=== PATIENT | female | born 1970 | race African-American/Black ===

== ENCOUNTER 2018-10-20 16:34 | Emergency (ER) | payer MEDICAID ==
[~2018-10-20] VITALS: Ht 165.1 cm; Wt 81.0 kg
[2018-10-20 17:43] LABS: CLARITY URINE CLEAR (CLEAR); COLOR URINE YELLOW (YELLOW); KETONES URINE TRACE (NEGATIVE); LEUKOCYTE ESTERASE URINE 1+ (NEGATIVE); NITRITE URINE NEGATIVE (NEGATIVE); OCCULT BLOOD URINE 3+ (NEGATIVE); PROTEIN URINE 2+ (NEGATIVE); SPECIFIC GRAVITY URINE 1.025 (1.005-1.030)
[2018-10-20 17:46] LABS: BASOPHILS % 1.2 % (0.0-2.0); EOSINOPHILS % 3.1 % (0.0-5.0); HEMATOCRIT. 36.8 % (36.0-48.0); HEMOGLOBIN. 12.1 g/dL (12.0-16.0); LYMPHOCYTES % 17.6 % (20.0-50.0); MEAN CORPUSCULAR HEMOGLOBIN 28.6 pg (28.0-32.0); MEAN CORPUSCULAR VOLUME 87.2 fL (81.0-99.0); MEAN PLATELET VOLUME 9.1 fl (7.4-10.4); MONOCYTES % 5.1 % (2.0-8.0); PLATELET 291 x1000/uL (130-400); RED BLOOD CELL COUNT 4.22 mill/uL (4.2-5.4); RED CELL DISTRIBUTION WIDTH 14.8 % (11.6-14.6)
[2018-10-20 17:47] LABS: *AMPHETAMINES SCREEN URINE NEGATIVE (NEGATIVE); *BARBITURATES SCREEN URINE NEGATIVE (NEGATIVE); *BENZODIAZEPINES SCREEN URINE NEGATIVE (NEGATIVE); *COCAINE SCREEN URINE NEGATIVE (NEGATIVE)
[2018-10-20 17:48] LABS: CANNABINOID URINE SCREEN NEGATIVE (NEGATIVE); METHADONE URINE SCREEN NEGATIVE (NEGATIVE); OPIATES URINE SCREEN NEGATIVE (NEGATIVE); PHENCYCLIDINE URINE SCREEN NEGATIVE (NEGATIVE)
[2018-10-20 17:48] LABS: CHLORIDE 110 mEq/L (98-107)
[2018-10-20 17:52] LABS: ETHANOL BLOOD < 10 mg/dL
[2018-10-21 16:31] LABS: HCG SCREEN NEGATIVE
[2018-10-22] MEDS ORDERED: ACETAMINOPHEN 325MG TABLET PO ONE (09:00)
[2018-10-24] MEDS ORDERED: LORAZEPAM 1MG TABLET PO ONE (10:00)
[2018-10-24] MEDS ORDERED: ARIPIPRAZOLE 10MG TABLET PO ONE (10:00)
[2018-10-24 19:54] VITALS: BP 143/74
== END 2018-10-24 19:54 ==
LOC: ER 16:34
DX: R45.851 Suicidal ideations (principal); Z59.0 Homelessness; F31.9 Bipolar disorder, unspecified; F20.9 Schizophrenia, unspecified
CPT/HCPCS: 36415; 80305; 80307; 80320; 80329; 81003; 93005; 99284; G0480

== ENCOUNTER 2022-09-01 10:32 | Emergency (ER) | payer MEDICAID, OTHER ==
[~2022-09-01] VITALS: Ht 170.2 cm; Wt 127.3 kg
[~2022-09-01 10:32] MED LIST: ARIP10TA56 PO; ATEN50TA PO; DIVA-75 PO; FLUO20CA39 PO; FLUT15.844 BOTHNSTRLS; LORA2DIS6 PO; LORA2ORA5 PO; NAPR-681 PO; ZIPR80CA9 PO
[2022-09-01] MEDS ORDERED: IPRATROPIUM BROMIDE (0.02%) 0.5MG/2.5ML NEB HHN STA (10:57)
[2022-09-01] MEDS ORDERED: ALBUTEROL (0.083%) 2.5MG/3ML NEB HHN STA (10:57)
[2022-09-01] MEDS ORDERED: PREDNISONE 20MG TABLET PO STA (10:57)
[2022-09-01 11:29] LABS: BASOPHILS % 0.4 % (0.0-2.0); EOSINOPHILS % 6.8 % (0.0-5.0); HEMATOCRIT. 37.3 % (36.0-48.0); LYMPHOCYTES % 25.3 % (20.0-50.0); MEAN CORPUSCULAR HEMOGLOBIN 25.8 pg (28.0-32.0); MEAN CORPUSCULAR VOLUME 80.1 fL (81.0-99.0); MEAN PLATELET VOLUME 8.7 fl (7.4-10.4); MONOCYTES % 7.6 % (2.0-8.0); NEUTROPHILS % 59.9 % (40.0-76.0); PLATELET 210 x1000/uL (130-400); RED BLOOD CELL COUNT 4.66 mill/uL (4.2-5.4); RED CELL DISTRIBUTION WIDTH 21.7 % (11.6-14.6)
[2022-09-01 11:36] LABS: CHLORIDE 104 mEq/L (98-107)
[2022-09-01 11:53] VITALS: PULSE 74; RESP 18; O2SAT 96
[2022-09-01 11:53] LABS: HCG SCREEN NEGATIVE
[2022-09-01] MEDS ORDERED: ALBU6.7H3 INH (13:11)
[2022-09-01 13:18] VITALS: BP 148/76; PULSE 87; RESP 16; TEMP 97.5
== END 2022-09-01 13:46 | disposition home or self-care (01) ==
LOC: ER 10:32
DX: J45.901 Unspecified asthma with (acute) exacerbation (principal); Z86.59 Personal history of other mental and behavioral disorders
CPT/HCPCS: 80053; 84703; 83880; 85025; 84484; 36415; 71045; 94640; 93005; 99285; J7512; Z7610 ×3